=== PATIENT | male | born 1945 | race Caucasian/White ===

== ENCOUNTER 2017-02-07 10:12 | Inpatient (IN) | payer OTHER ==
[~2017-02-07] VITALS: Ht 175.3 cm; Wt 86.2 kg
[2017-02-07 10:28] VITALS: BP_SYST 121
[2017-02-07] MEDS ORDERED: ONDANSETRON HCL 4 MG/2 ML VIAL IVP ONE (10:45)
[2017-02-07] MEDS ORDERED: NACL 0.9% 1,000 ML IV ONE (10:45)
[2017-02-07 10:56] LABS: BILIRUBIN,URINE NEGATIVE (NEGATIVE); BLOOD, URINE NEGATIVE (NEGATIVE); CLARITY/URINE CLEAR (CLEAR); COLOR,URINE YELLOW (YELLOW); GLUCOSE,URINE NEGATIVE (NEGATIVE); KETONES,URINE NEGATIVE (NEGATIVE); LEUKOCYTE ESTERASE ,URINE NEGATIVE (NEGATIVE); NITRITE, URINE NEGATIVE (NEGATIVE); PH,URINE 6.5 (5.0-8.0); PROTEIN URINE NEGATIVE (NEGATIVE); UROBILINOGEN,URINE 0.2 (0.2-1.0)
[2017-02-07 11:21] LABS: CREATININE 0.97 mg/dL (0.55-1.30); POTASSIUM 3.3 mmol/L (3.5-5.1)
[2017-02-07 11:26] LABS: TOTAL BILIRUBIN 0.3 mg/dL (0.0-1.0)
[2017-02-07 11:30] LABS: BASOPHILS # (AUTO) 0.2 K/uL (0.0-0.2); BASOPHILS % (AUTO) 1.4 % (0.0-2.0); EOSINOPHILS # (AUTO) 0.2 K/uL (0.0-0.4); EOSINOPHILS % (AUTO) 1.8 % (0.0-4.0); HEMATOCRIT 38.5 % (36-54); HEMOGLOBIN 12.8 g/dL (14.0-18.0); LYMPHOCYTES # (AUTO) 1.7 K/uL (1.0-5.5); LYMPHOCYTES % (AUTO) 15.3 % (20.5-51.5); MEAN CORPUSCULAR HEMOGLOBIN 30 pg (27-31); MEAN CORPUSCULAR HGB CONC 33 % (32-36); MEAN CORPUSCULAR VOLUME 89 fL (79.0-98.0); MONOCYTES # (AUTO) 1.3 K/uL (0.0-1.0); MONOCYTES % (AUTO) 11.2 % (1.7-9.3); NEUTROPHILS # (AUTO) 7.8 K/uL (1.8-7.7); NEUTROPHILS % (AUTO) 70.3 % (40.0-70.0); PLATELET COUNT (AUTO) 214 K/uL (130-430); RED BLOOD CELL COUNT(AUTO) 4.31 MIL/uL (4.2-6.2); RED CELL DISTRIBUTION WIDTH 12.9 % (9.0-15.0); WHITE BLOOD COUNT (AUTO) 11.2 K/uL (4.8-10.8)
[2017-02-07] MEDS ORDERED: D5NS 500 ML IV ONE (12:30)
[2017-02-07] MEDS ORDERED: OMEP20CA10 PO (12:35)
[2017-02-07 12:55] VITALS: BP_SYST 143
[2017-02-07] MEDS ORDERED: LEVOFLOXACIN 500 MG/D5W 100 ML IV ONE (15:30)
[2017-02-07 16:00] VITALS: BP_SYST 115
[2017-02-07] MEDS ORDERED: ACETAMINOPHEN 325 MG TABLET PO PRN (16:15)
[2017-02-07] MEDS ORDERED: MORPHINE 2 MG/ML INJ. SYRINGE IVP PRN (16:15)
[2017-02-07] MEDS ORDERED: MORPHINE 4 MG/ML INJ. SYRINGE IVP PRN (16:15)
[2017-02-07] MEDS: metroNIDAZOLE 500 mg/NS 100 ML IV SCH ×2 (17:25→20:55)
[2017-02-07 20:00] VITALS: BP_SYST 131
[2017-02-07] MEDS ORDERED: metroNIDAZOLE 500 mg/NS 100 ML IV SCH (22:00)
[2017-02-08 01:07] VITALS: BP_SYST 135
[2017-02-08 05:00] VITALS: BP_SYST 110
[2017-02-08] MEDS: metroNIDAZOLE 500 mg/NS 100 ML IV SCH ×3 (06:54→21:04)
[2017-02-08 07:47] LABS: HEMATOCRIT 37.3 % (36-54); HEMOGLOBIN 12.6 g/dL (14.0-18.0); MEAN CORPUSCULAR HEMOGLOBIN 31 pg (27-31); MEAN CORPUSCULAR HGB CONC 34 % (32-36); MEAN CORPUSCULAR VOLUME 90 fL (79.0-98.0); PLATELET COUNT (AUTO) 243 K/uL (130-430); RED BLOOD CELL COUNT(AUTO) 4.15 MIL/uL (4.2-6.2); RED CELL DISTRIBUTION WIDTH 12.8 % (9.0-15.0); WHITE BLOOD COUNT (AUTO) 12.7 K/uL (4.8-10.8)
[2017-02-08 07:57] LABS: ALBUMIN 2.3 g/dL (3.4-4.8); CALCIUM 8.3 mg/dL (8.4-11.0); CREATININE 0.93 mg/dL (0.55-1.30); POTASSIUM 3.6 mmol/L (3.5-5.1); TOTAL BILIRUBIN 0.3 mg/dL (0.0-1.0)
[2017-02-08 08:02] VITALS: BP_SYST 118
[2017-02-08] MEDS: LEVOFLOXACIN 500 MG/D5W 100 ML IV SCH (08:16)
[2017-02-08 10:44] LABS: BAND % (MANUAL) 0 % (0-6); LYMPHOCYTES % (MANUAL) 21 % (20-46)
[2017-02-08 10:45] LABS: ATYPICAL LYMPHOCYTES % 0 % (0-0); BASOPHILS % (MANUAL) 0 % (0-2); EOSINOPHILS % (MANUAL) 2 % (0-7); MONOCYTES % (MANUAL) 9 % (0-11)
[2017-02-08 12:21] VITALS: BP_SYST 127
[2017-02-08 16:00] VITALS: BP_SYST 132
[2017-02-08 19:15] VITALS: BP_SYST 132
[2017-02-09 00:44] VITALS: BP_SYST 138
[2017-02-09 00:45] VITALS: BP_SYST 138
[2017-02-09 04:08] VITALS: BP_SYST 133
[2017-02-09] MEDS: metroNIDAZOLE 500 mg/NS 100 ML IV SCH (06:00)
[2017-02-09 07:18] LABS: BASOPHILS % (AUTO) 0.1 % (0.0-2.0); EOSINOPHILS # (AUTO) 0.4 K/uL (0.0-0.4); EOSINOPHILS % (AUTO) 3.6 % (0.0-4.0); HEMATOCRIT 37.8 % (36-54); HEMOGLOBIN 12.7 g/dL (14.0-18.0); LYMPHOCYTES # (AUTO) 1.3 K/uL (1.0-5.5); LYMPHOCYTES % (AUTO) 12.1 % (20.5-51.5); MEAN CORPUSCULAR HEMOGLOBIN 30 pg (27-31); MEAN CORPUSCULAR HGB CONC 34 % (32-36); MEAN CORPUSCULAR VOLUME 90 fL (79.0-98.0); MONOCYTES # (AUTO) 0.7 K/uL (0.0-1.0); MONOCYTES % (AUTO) 6.3 % (1.7-9.3); NEUTROPHILS # (AUTO) 8.6 K/uL (1.8-7.7); NEUTROPHILS % (AUTO) 77.9 % (40.0-70.0); PLATELET COUNT (AUTO) 309 K/uL (130-430); RED BLOOD CELL COUNT(AUTO) 4.21 MIL/uL (4.2-6.2); RED CELL DISTRIBUTION WIDTH 12.7 % (9.0-15.0)
[2017-02-09 07:49] LABS: ALBUMIN 2.4 g/dL (3.4-4.8); CALCIUM 8.4 mg/dL (8.4-11.0); CREATININE 0.93 mg/dL (0.55-1.30); POTASSIUM 3.6 mmol/L (3.5-5.1); TOTAL BILIRUBIN 0.3 mg/dL (0.0-1.0)
[2017-02-09 08:05] VITALS: BP_SYST 112
[2017-02-09] MEDS: LEVOFLOXACIN 500 MG/D5W 100 ML IV SCH (08:54)
[2017-02-09 10:16] VITALS: BP_SYST 116
[2017-02-09] MEDS ORDERED: LEVO500T20 PO (10:41)
[2017-02-09] MEDS ORDERED: METR500T PO (10:42)
== END 2017-02-09 11:40 | disposition home or self-care (01) | DRG 392 ==
LOC: SED 10:12 → SMU 10:35
PROVIDERS: ADMIT Internal Medicine Hospice and Palliative Medicine; ATTEND Internal Medicine Hospice and Palliative Medicine
DX: A09 Infectious gastroenteritis and colitis, unspecified (principal); N43.1 Infected hydrocele; E78.5 Hyperlipidemia, unspecified; H40.9 Unspecified glaucoma; K21.9 Gastro-esophageal reflux disease without esophagitis; Z98.49 Cataract extraction status, unspecified eye
CPT/HCPCS: 36415; 76870-TC; 78226; 80053; 81003; 83605; 83690-TC; 85007; 85025; 85027; 87040-TC; 96361; 96374; 99285; A9537; J1956; J2270; J2405; J3490; J7030; J7042

== ENCOUNTER 2019-02-06 08:51 | Outpatient (CLI) | payer OTHER ==
[~2019-02-06 08:51] MED LIST: LEVO500T20 PO; METR500T PO; OMEP20CA10 PO
== END 2019-02-06 21:14 | disposition home or self-care (01) ==
LOC: SRD 08:51
PROVIDERS: ATTEND Internal Medicine
DX: M17.0 Bilateral primary osteoarthritis of knee (principal)